=== PATIENT | male | born 1980 | race Caucasian/White ===

== ENCOUNTER 2019-09-09 06:47 | Emergency (ER) | payer OTHER ==
--- NOTE | 2019-09-09 07:07 | ED Physician Documentation ---
PD HPI MHE - Stated complaint Stated Complaint: MHE - Chief complaint Chief Complaint: MHE - History obtained from History obtained from: Patient - History of Present Illness Primary symptom: Manic, Anxiety Timing - onset: How many weeks ago (He states he has been feeling manic episode building over the last several weeks with last sleep anxiety and agitation. Last couple of days he has been feeling pressured and racing thoughts. Last night he had thoughts of taking extra of his sleeping medicine or alcohol or marijuana in order to improve his thought process. 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 However he is feeling that he wants to have better control of his pressured thoughts and anxiety. He is concerned that he is going to either yell at his boss or hit someone if they stress him. He did not have homicidal thoughts per se.) Contributing factors: Work. No: Substance abuse - ETOH, Substance abuse - drugs, Off meds Similar symptoms before: Diagnosis (He does have a history of bipolar disorder treated since 2014. He states he was hospitalized at that point and has been maintained on lithium and trazodone with good control of symptoms until the last month or so. He denies any change in dose of medicines. He does get counseling regularly.) Recently seen: Clinic Review of Systems Constitutional: denies: Fever, Chills Nose: denies: Rhinorrhea / runny nose, Congestion Throat: denies: Sore throat Respiratory: denies: Cough GI: denies: Vomiting, Diarrhea Skin: denies: Rash, Lesions Neurologic: denies: Generalized weakness Psychiatric: reports: Anxiety (racing and pressured thoughts). denies: Hallucinations Endocrine: denies: Weight loss PD PAST MEDICAL HISTORY - Past Medical History Past Medical History: Yes Cardiovascular: None Respiratory: None Neuro: None Endocrine/Autoimmune: None Psych: Bipolar disorder - Past Surgical History Past Surgical History: Yes General: Appendectomy - Present Medications Home Medications: Ambulatory Orders Medication Instructions Recorded Confirmed [place] 100 mg PO BID 09/09/19 09/09/19 traZODone [Desyrel] 150 mg PO HS 09/09/19 09/09/19 - Allergies Allergies/Adverse Reactions: Allergies Allergy/AdvReac Type Severity Reaction Status Date / Time No Known Drug Allergies Allergy Verified 09/09/19 07:00 - Social History Does the pt smoke?: No Smoking Status: Never smoker Does the pt drink ETOH?: No Does the pt have substance abuse?: No - Immunizations Immunizations are current?: Yes - POLST Patient has POLST: No PD ED PE NORMAL - Vitals Vital signs reviewed: Yes - General General: Alert and oriented X 3, Well developed/nourished - HEENT HEENT: Pharynx benign - Neck Neck: Supple, no meningeal sign, No adenopathy - Cardiac Cardiac: RRR, No murmur - Respiratory Respiratory: Clear bilaterally - Abdomen Abdomen: Soft, Non tender - Derm Derm: Normal color, Warm and dry - Neuro Neuro: Alert and oriented X 3, No motor deficit, Normal speech - Psych Psych: Other (pleasant. He does seem somewhat anxious. He has a unpressured speech pattern initially talking with me. He does have everted gaze and does not seem relaxed.) Results - Vitals Vitals: Vital Signs - 24 hr 09/09/19 09/09/19 06:51 10:28 Temperature 36.7 C 36.4 C L Heart Rate 110 H 101 H Respiratory 18 17 Rate Blood Pressure 165/135 H 132/90 H O2 Saturation 96 99 Oxygen O2 Source Room air - Labs Labs: Laboratory Tests 09/09/19 09/09/19 09/09/19 07:00 07:25 07:25 WBC 8.5 RBC 5.09 Hgb 15.9 Hct 47.1 MCV 92.5 MCH 31.2 H MCHC 33.8 RDW 11.8 L Plt Count 280 MPV 8.8 Neut # (Auto) 6.3 Lymph # (Auto) 1.3 L Terrell # (Auto) 0.6 Eos # (Auto) 0.2 Baso # (Auto) 0.1 Absolute Nucleated RBC 0.00 Nucleated RBC % 0.0 Sodium 136 Potassium 4.1 Chloride 101 Carbon Dioxide 25 Anion Gap 10.0 BUN 19 Creatinine 1.0 Estimated GFR (MDRD) 85 L Glucose 98 Calcium 9.7 Magnesium 2.1 Total Bilirubin 0.7 AST 24 ALT 27 Alkaline Phosphatase 57 Total Protein 8.5 H Albumin 5.3 Globulin 3.2 Albumin/Globulin Ratio 1.7 Lipase 25 TSH Urine Color YELLOW Urine Clarity CLEAR Urine pH 7.5 Ur Specific [place] 1.010 Urine Protein NEGATIVE Urine Glucose (UA) NEGATIVE Urine Ketones NEGATIVE Urine Occult Blood NEGATIVE Urine Nitrite NEGATIVE Urine Bilirubin NEGATIVE Urine Urobilinogen 0.2 (NORMAL) Ur Leukocyte Esterase NEGATIVE Ur Microscopic Review NOT INDICATED Urine Culture Comments NOT INDICATED Last Dose Date Last Dose Time Salicylates < 6.0 Urine Opiates Screen NEGATIVE Ur Oxycodone Screen NEGATIVE Urine Methadone Screen NEGATIVE Ur Propoxyphene Screen NEGATIVE Acetaminophen < 10 L Ur Barbiturates Screen NEGATIVE Ur Tricyclics Screen NEGATIVE Ur Phencyclidine Scrn NEGATIVE Ur Amphetamine Screen NEGATIVE U Methamphetamines Scrn NEGATIVE U Benzodiazepines Scrn NEGATIVE [place] Urine Cocaine Screen NEGATIVE U Cannabinoids Screen NEGATIVE Ethyl Alcohol < 5.0 09/09/19 09/09/19 07:25 07:49 WBC RBC Hgb Hct MCV MCH MCHC RDW Plt Count MPV Neut # (Auto) Lymph # (Auto) Terrell # (Auto) Eos # (Auto) Baso # (Auto) Absolute Nucleated RBC Nucleated RBC % Sodium Potassium Chloride Carbon Dioxide Anion Gap BUN Creatinine Estimated GFR (MDRD) Glucose Calcium Magnesium Total Bilirubin AST ALT Alkaline Phosphatase Total Protein Albumin Globulin Albumin/Globulin Ratio Lipase TSH 1.45 Urine Color Urine Clarity Urine pH Ur Specific [place] Urine Protein Urine Glucose (UA) Urine Ketones Urine Occult Blood Urine Nitrite Urine Bilirubin Urine Urobilinogen Ur Leukocyte Esterase Ur Microscopic Review Urine Culture Comments Last Dose Date 09/09/19 Last Dose Time 0849 Salicylates Urine Opiates Screen Ur Oxycodone Screen Urine Methadone Screen Ur Propoxyphene Screen Acetaminophen Ur Barbiturates Screen Ur Tricyclics Screen Ur Phencyclidine Scrn Ur Amphetamine Screen U Methamphetamines Scrn U Benzodiazepines Scrn [place] 0.30 Urine Cocaine Screen U Cannabinoids Screen Ethyl Alcohol PD MEDICAL DECISION MAKING - ED course Complexity details: reviewed results, re-evaluated patient, considered differential (Does sound like he is having a building manic episode over the last few weeks by his self description and it has become more symptomatic the last few days. At this point I would add short-term and antipsychotic such as Zyprexa to help with symptoms here. We will have social work talk with him. He may benefit more from hospitalization with medication adding or adjustment versus being managed with added medication and outpatient follow-up with psychological services.), d/w patient, d/w managed services consultant (Social WorkShelly - Who talked with his command and helped arrange a psychological services appointment later this morning. The patient is comfortable with leaving here and following up with psychological services. He states he feels more calm and better thought process after the medications here this morning. I talked with the patient and told him rather defer any prescriptions to his primary care but wrote as a suggestion to increase his lithium dosing to get in the therapeutic range and perhaps increase his trazodone or add a low-dose of olanzapine.) Departure - Departure Disposition: 01 Home, Self Care Clinical Impression: Bipolar disorder Qualifiers: Active/Remission status: currently active Current bipolar episode type: hypomanic Qualified Code(s): F31.0 - Bipolar disorder, current episode hypomanic Condition: Stable Record reviewed to determine appropriate education?: Yes Comments: Your lithium level was slightly below the therapeutic range at 0.3 with therapeutic range being 0.6-1. Your provider might consider increasing your daily dose slightly to adjust that. Also consideration would be increasing your trazodone dose at night or potentially adding in short-term olanzapine 5 mg daily to help with some of the symptoms until it phase is down. Stay well-hydrated. Go to your senior chief and the psychological services today directly from here. I printed out copies of your lab test to bring with you along with this note for the above suggestions. That medication regimen will be of course up to them and you. Discharge Date/Time: 09/09/19 10:37
[2019-09-09 07:29] LABS: MUDS CUTOFF CONCENTRATIONS CUTOFF CONC BELOW:
[2019-09-09 07:32] LABS: BILIRUBIN,URINE NEGATIVE (NEGATIVE); GLUCOSE, URINE (UA) NEGATIVE (NEGATIVE); KETONES,URINE (UA) NEGATIVE (NEGATIVE); LEUKOCYTE ESTERASE, URINE NEGATIVE (NEGATIVE); NITRITE,URINE NEGATIVE (NEGATIVE); OCCULT BLOOD,URINE NEGATIVE (NEGATIVE); PH,URINE 7.5 PH (5.0-7.5); PROTEIN,URINE NEGATIVE (NEGATIVE); UROBILINOGEN,URINE 0.2 (NORMAL) E.U./dL (NORMAL)
[2019-09-09 07:34] LABS: BASOPHILS # (AUTO) 0.1 10^3/uL (0.0-0.1); BASOPHILS % (AUTO) 0.9 %; EOSINOPHILS # (AUTO) 0.2 10^3/uL (0.0-0.7); EOSINOPHILS % (AUTO) 2.6 %; HGB - HEMOGLOBIN 15.9 g/dL (14.0-18.0); LYMPHOCYTES # (AUTO) 1.3 10^3/uL (1.5-3.5); LYMPHOCYTES % (AUTO) 14.9 %; MEAN CORPUSCULAR HEMOGLOBIN 31.2 pg (27.0-31.0); MEAN CORPUSCULAR HGB CONC 33.8 g/dL (32.0-36.0); MEAN CORPUSCULAR VOLUME 92.5 fL (80.0-94.0); MEAN PLATELET VOLUME 8.8 fL (7.4-11.4); MONOCYTES # (AUTO) 0.6 10^3/uL (0.0-1.0); MONOCYTES % (AUTO) 6.5 %; NEUTROPHILS # (AUTO) 6.3 10^3/uL (1.5-6.6); NEUTROPHILS % (AUTO) 73.7 %; PLT - PLATELET COUNT 280 10^3/uL (130-450); RED BLOOD COUNT 5.09 10^6/uL (4.70-6.10); RED CELL DISTRIBUTION WIDTH 11.8 % (12.0-15.0); WHITE BLOOD COUNT 8.5 x10^3/uL (4.8-10.8)
[2019-09-09] MEDS ORDERED: OLANZapine ODT 5 MG TABLET TL ONE (07:35)
[2019-09-09 07:37] LABS: CLARITY,URINE CLEAR (CLEAR)
[2019-09-09 07:45] LABS: AMPHETAMINE SCREEN,URINE NEGATIVE (NEGATIVE); BENZODIAZEPINES SCREEN, URINE NEGATIVE (NEGATIVE); COCAINE SCREEN URINE NEGATIVE (NEGATIVE); METHADONE SCREEN, URINE NEGATIVE (NEGATIVE); METHAMPHETAMINES SCREEN, URINE NEGATIVE (NEGATIVE); OPIATE SCREEN, URINE NEGATIVE (NEGATIVE); OXYCODONE SCREEN, URINE NEGATIVE (NEGATIVE); PROPOXYPHENE SCREEN, URINE NEGATIVE (NEGATIVE); TRICYCLIC ANTIDEPRESSANT,URINE NEGATIVE (NEGATIVE)
[2019-09-09 08:01] LABS: ACETAMINOPHEN < 10 ug/mL (10-30); ALBUMIN 5.3 g/dL (3.2-5.5); ALBUMIN/GLOBULIN RATIO 1.7 (1.0-2.2); ALKALINE PHOSPHATASE 57 IU/L (42-121); ALT ALANINE AMINOTRANSFERASE 27 IU/L (10-60); AST ASPARTATE AMINOTRANSFERASE 24 IU/L (10-42); BILIRUBIN,TOTAL 0.7 mg/dL (0.2-1.0); BUN - BLOOD UREA NITROGEN 19 mg/dL (6-20); CALCIUM 9.7 mg/dL (8.5-10.3); CARBON DIOXIDE - CO2 25 mmol/L (21-32); CHLORIDE 101 mmol/L (101-111); GFR - MDRD 85 (>89); GLUCOSE 98 mg/dL (70-100); LIPASE 25 U/L (22-51); MAGNESIUM 2.1 mg/dL (1.7-2.8); SALICYLATE < 6.0 mg/dL; SODIUM 136 mmol/L (135-145); TOTAL PROTEIN 8.5 g/dL (6.7-8.2)
[2019-09-09] MEDS ORDERED: NICOTINE 14 MG PATCH TOP STA (08:38)
[2019-09-09] MEDS ORDERED: LITHIUM 150 MG CAPSULE PO STA (08:39)
[2019-09-09 10:29] VITALS: BP 132/90
== END 2019-09-09 10:37 | disposition home or self-care (01) ==
LOC: ED 06:47
DX: F31.0 Bipolar disorder, current episode hypomanic (principal); R79.89 Other specified abnormal findings of blood chemistry
CPT/HCPCS: 36415; 80178; 80320; 80329; 81003; 82652; 83690; 83735; 99283; A9270; 80053; 80306; 80307; 81001; 84443; 85025; 87086

== ENCOUNTER 2020-11-18 09:00 | Outpatient (CLI) | payer OTHER ==
[2020-11-18 09:45] VITALS: BP 112/84
--- NOTE | 2020-11-18 09:45 | SLEEP CARE CONSULTATION ---
Information from patient questionnaire entered by Jocelyn Arriaga. I have reviewed and concur with the information entered by Jocelyn Arriaga. This document represents the service I personally performed and the decisions made by me, Meche Chapman ARNP. History of Present Illness Service Date and Time: 11/18/2020 0900 Reason for Visit: New patient Chief Complaint: reports: Insomnia, Unrefreshed sleep, Snoring, Excessive daytime sleepiness (especially Mon-Fri), Observed pauses in breathing, Fatigue, Frequent awakenings at night Date of Onset: over 10 years Usual bedtime: 9:30-10 pm Time it takes to fall asleep: 30 minutes Snores at night: Yes (I dont know) Observed to quit breathing while asleep: No Number of times waking at night: 3-4 Reasons for waking at night: reports: Other (I dont know, just wake around 2:- 3:30am and then struggle to go back to sleep). denies: Choking, Snoring, Gasping for air (only with a nightmare) Toss, Turn, or Twitch while sleeping: Yes Recalls having dreams: Yes Usually gets out of bed at: 5-7 am Feels refreshed in the morning: No (only refreshed on Sat and Sun) Morning headache: No Sleepy or fatigued during the day: Yes Ever fallen asleep while driving: No Takes day naps: Yes (on Sat and Sun) Dreams during day naps: Yes Prior sleep studies: No Additional HPI information: I had the pleasure of seeing KATE GALVAN today regarding the possibility of him having a sleep disorder. His current complaints are snoring, observed pauses in breathing, unrefreshed sleep and fatigue. He has difficulty getting to sleep and has to take Trazadone to go to sleep. He feels very sleepy during the day mostly on the weekdays but since he catches up on his sleep on the weekends he is better then. He wants to see if he has sleep apnea before he gets out of the service. He denies a family history of sleep apnea. - Parasomnia Symptoms Ever been unable to move upon waking from sleep: No Walks in sleep: No Talks in sleep: No Ever acted out dreams in sleep: No Ever felt weak in the knees when startled or emotional: Yes Bothered by creepy, crawly, restless sensations in legs: Yes (during the day) Problems with memory or concentration: Yes Subjective Initial [place] Sleepiness Scale score: 15 (in 2020) Past Medical History Past Medical History: reports: Anxiety, Depression, Mood disorder (schizophrenia and bipolar type 1), Other (high cholesterol). 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 Patient is Single and lives in [place]. Have you smoked in the past 12 months: Yes (last month he quit after smoking for 4 months) Cigarettes per day (20/pack): 10 Years of smokin (only 4 months) Quit date: 09/2020 Smoking Pack Years: 0.5 Alcohol use: No Caffeine use: Yes Caffeine amount and frequency: 32 oz of coffee daily Family History Family history of sleep disordered breathing: No Allergies and Home Medications Drug allergies reviewed: Yes (NKDA) Home medication list reviewed: Yes Allergy and home medication list: Trazadone Lipitor Vitamin D Vitamin C Review of Systems Weight gain over past 5 years: 8 Cardiovascular: reports: high blood pressure Gastrointestinal: denies: heartburn Neurological: denies: headaches Psychiatric: reports: anxiety, depression, mood disorder, claustrophobia Ear/Nose/Throat: reports: dry mouth/throat (sometimes since started taking cholesterol medication), wisdom teeth removed. denies: tonsillectomy Immunologic: denies: allergies to food or environment Physical Exam Blood Pressure: 112/84 Cuff size: wrist Heart Rate: 69 O2 Saturation: 97 Height: 5 ft 8 in Weight: 210 lb Body Mass Index: 31.9 BMI Classification: Obese Neck circumference: 16.7 (inches) Nostrils: patent to airflow Mouth and throat: narrow oropharynx Soft palate: long Hard palate: normal Uvula visualization: 25% Mallampati Class III Tongue: enlarged in size with teeth zamudio on lateral edges Tonsils: 2+ Neck: normal w/o lymphadenopathy or thyromegaly Heart: regular rate and rhythm Lungs: clear bilaterally Impression and Plan 1. Suspected Obstructive Sleep Apnea-Hypopnea Syndrome, as suggested by a history of loud and irregular snoring, observed cessation of breath while asleep, frequent awakening during the night, unrefreshed sleep, cognitive impairment, and excessive daytime sleepiness. Narrow oropharynx and obesity are common predisposing factors for obstructive sleep apnea-hypopnea syndrome. I recommend proceeding to polysomnography to confirm the diagnosis and to assess severity. If the patient has significant sleep disordered breathing, a manual CPAP titration study will also be performed to find the optimal treatment pressure. I informed the patient of what the sleep studies involve and after some discussion, obtained agreement to proceed. The pathophysiology of obstructive sleep apnea-hypopnea syndrome was discussed with the patient and health risks of cardiovascular and cerebrovascular disease if not treated. Risks of drowsy driving discussed in detail and patient advised to avoid long distance driving and to black puller at the first sign of drowsiness. Patient agreed to plan. * Schedule polysomnography +- manual CPAP titration study and return in 1-2 weeks after the study to discuss result and initiate therapy. * Avoid long distance driving or driving when feeling sleepy. * Avoid alcohol, sedative and muscle relaxant around bedtime. * Attempt to lose weight. * Review instructions provided by trained office staff on how to prepare for the sleep study. * Return for follow-up after sleep study completed. Counseling Topics: Weight loss health impact Visit Type: In Office Time Spent with Patient (minutes): 31 Provider Statement: I spent 100% of the Face to Face Visit with the patient with greater than 50% spent counseling the patient and coordination of care.
== END 2020-11-18 09:01 | disposition home or self-care (01) ==
LOC: SC 09:00
PROVIDERS: ATTEND Nurse Practitioner Family
DX: R06.83 Snoring (principal); G47.8 Other sleep disorders; R41.89 Other symptoms and signs involving cognitive functions and awareness; G47.10 Hypersomnia, unspecified
CPT/HCPCS: 99203; 99212

== ENCOUNTER 2020-12-23 10:48 | Outpatient (CLI) | payer OTHER | END 2020-12-23 10:49 | disposition home or self-care (01) | LOC: SC 10:48 | PROVIDERS: ATTEND Nurse Practitioner Family | DX: R06.83 Snoring (principal); R06.81 Apnea, not elsewhere classified; G47.10 Hypersomnia, unspecified; G47.8 Other sleep disorders; R41.89 Other symptoms and signs involving cognitive functions and awareness; E66.9 Obesity, unspecified; Z68.31 Body mass index [BMI] 31.0-31.9, adult | CPT/HCPCS: 95806 ==

== ENCOUNTER 2021-01-06 11:07 | Outpatient (CLI) | payer OTHER ==
--- NOTE | 2021-01-06 11:45 | SLEEP CARE CONSULTATION ---
Information from patient questionnaire entered by Jocelyn Arriaga. I have reviewed and concur with the information entered by Jocelyn Arriaga. This document represents the service I personally performed and the decisions made by , Meche Chapman ARNP. History of Present Illness Service Date and Time: 01/06/2021 1107 Initial [place] Sleepiness Scale score: 15 (in 2020) Current [place] Sleepiness Scale score: 12 Additional HPI information: KATE GALVAN returns for follow up and results of the recently performed home sleep study. The patient was informed of the following findings: no significant sleep disordered breathing with an average AHI of 1.2 and flash oxygen saturation of 90%. I explained the pathophysiology behind obstructive sleep apnea. Patient does not have sleep apnea and was advised how weight gain could increase the risk of developing sleep apnea in the future. I strongly encouraged the patient to lose weight. Patient has moderate to loud snoring. Snoring can be reduced by weight loss. Weight loss is best achieved with diet consult. Patient instructed to contact PCP for referral. Snoring can also be treated with an oral appliance from a dentist. Advised to check insurance coverage. In addition, an ENT evaluation can be do to see if other treatment is indicated. Patient counseled not drink alcohol less than 4 hours before bedtime as it can increase snoring and apnea. Patient was cautioned about risks of drowsy driving until sleepiness symptoms resolve. Sleep Study - Results Type of Sleep Study: Home sleep study Prior sleep studies: No Polysomnography/Home Sleep Study results: Physician Impression: The quality of the study is good. The length of the study is adequate (> 240 minutes). Please also see the tabulated and graphic data. 1. No significant sleep disordered breathing, with an AHI of 1.2/hr and flash SaO2 of 90%. During the study, the patient had 3 apneas (3 obstructive, 0 central, 0 mixed) and 4 hypopneas. The longest episode lasted 31.5 seconds. The patient slept adequately in supine position (supine AHI was 0.0 and non-supine, 1.79). Allergies and Home Medications Home medication list reviewed: Yes (no new meds) Review of Systems Review of systems same as previous: Yes (no changes) Physical Exam Heart Rate: 76 O2 Saturation: 98 Height: 5 ft 8 in Weight: 206 lb Body Mass Index: 31.3 BMI Classification: Obese Impression and Plan Snoring but no significant sleep disordered breathing. Patient advised that often weight loss will reduce snoring as well as apnea risk. An oral appliance can also be used for snoring. This would require a dental consultation. Patient cautioned not to use other online appliances as can cause bite issues. A list of accredited dentists in [facility] and one local dentist who makes oral appliances is available in this office. Patient is advised to check if insurance will cover. An ENT consult can also be helpful to determine if any other treatment is an option. * Attempt to lose weight * Avoid alcohol consumption near bedtime * The patient is cautioned about driving until sleepiness is completely resolved. * Return in as needed for follow up. Counseling Topics: Weight loss health impact Visit Type: In Office Time Spent with Patient (minutes): 10 Provider Statement: I spent 100% of the Face to Face Visit with the patient with greater than 50% spent counseling the patient and coordination of care.
== END 2021-01-06 11:08 | disposition home or self-care (01) ==
LOC: SC 11:07
PROVIDERS: ATTEND Nurse Practitioner Family
DX: G47.10 Hypersomnia, unspecified (principal); G47.8 Other sleep disorders; R06.81 Apnea, not elsewhere classified; R06.83 Snoring; R41.89 Other symptoms and signs involving cognitive functions and awareness; E66.9 Obesity, unspecified; Z68.31 Body mass index [BMI] 31.0-31.9, adult
CPT/HCPCS: 99212

== ENCOUNTER 2023-03-28 11:23 | Emergency (ER) | payer OTHER ==
[2023-03-28 11:41] VITALS: BP 143/100
[2023-03-28] MEDS ORDERED: TETANUS/DIPHTHERIA/PERTUSSIS 0.5 ML SYRINGE IM ONE (11:48)
[2023-03-28] MEDS ORDERED: BUFFERED LIDOCAINE 10 ML SYRINGE SUBQ STA (11:48)
--- NOTE | 2023-03-28 11:49 | ED Physician Documentation ---
PD HPI LOWER EXT INJURY - Stated complaint Stated Complaint: LT FOOT INJ - Chief complaint Chief Complaint: Laceration - History obtained from History obtained from: Patient (42-year-old gentleman with unknown tetanus status accidentally hit his left lateral foot with an ax while chopping wood at home just prior to arrival.) PD PAST MEDICAL HISTORY - Past Medical History Cardiovascular: None Respiratory: None Neuro: None Endocrine/Autoimmune: None Psych: Bipolar disorder - Past Surgical History Past Surgical History: Yes General: Appendectomy - Present Medications Home Medications: Ambulatory Orders Medication Instructions Recorded Confirmed [place] [[place] Carbonate] 100 mg PO BID 09/09/19 03/28/23 traZODone [Desyrel] 150 mg PO HS 09/09/19 03/28/23 Atorvastatin Calcium [Lipitor] 80 mg PO 03/28/23 HYDROcod/ACETAM 5/325 [[place] 5/325] 1 - 2 tab PO Q6H PRN #15 tablet 03/28/23 cephALEXin [Keflex] 500 mg PO Q6H #28 cap 03/28/23 - Allergies Allergies/Adverse Reactions: Allergies Allergy/AdvReac Type Severity Reaction Status Date / Time No Known Drug Allergies Allergy Verified 03/28/23 11:39 - Social History Does the pt smoke?: No Smoking Status: Never smoker Does the pt drink ETOH?: No Does the pt have substance abuse?: No - Immunizations Immunizations are current?: Yes - POLST Patient has POLST: No PD ED PE NORMAL - Vitals Vital signs reviewed: Yes - General General: Alert and oriented X 3, No acute distress - Extremities Extremities: Other (3 cm longitudinal laceration over the posteromedial left small toe. Normal neurovascular function at the tip. Tendon strength will be assessed after anesthesia.) - Neuro Neuro: Alert and oriented X 3, Normal speech Results - Vitals Vitals: Vital Signs - 24 hr 03/28/23 11:35 Temperature 36.8 C Heart Rate 91 Respiratory 20 Rate Blood Pressure 143/100 H O2 Saturation 99 Oxygen O2 Source Room air - Rads (name of study) Three-view x-ray of the left foot demonstrates intra-articular fractures of the fifth proximal and middle phalanges Relevant Findings:: Final report received, EMP independent interpretation of te st Procedures - Laceration (location) Left small toe Length in cm: 3 Wound type: Linear Neurovascular status: Sensory intact, Motor intact Anesthesia: Lidocaine 1%, With bicarb Wound preparation: Hibiclens, Irrigated copiously NS Skin layer closure: Nylon, Interrupted, Size #-0 - enter number (4-0), Sutures - enter # (7) Other: Patient tolerated well, No complications, Neurovascular intact, Tetanus booster given PD Medical Decision Making - ED course ED course: 42-year-old gentleman with open fracture of proximal and middle phalanges of left small toe with overlying laceration. It was thoroughly irrigated and scrubbed and then closed with sutures. He is placed in a fracture shoe and counseled on wound care and orthopedic follow-up. He declined crutches. He was given 1 g of Ancef IM here. Departure - Departure Disposition: 01 Home, Self Care Clinical Impression: Laceration Open fracture of phalanx of left fifth toe Qualifiers: Encounter type: initial encounter Qualified Code(s): S92.502B - Displaced unspecified fracture of left lesser toe(s), initial encounter for open fracture Condition: Good Record reviewed to determine appropriate education?: Yes Instructions: ED Fx Toe Open Prescriptions: cephALEXin [Keflex] 500 mg PO Q6H #28 cap HYDROcod/ACETAM 5/325 [[place] 5/325] 1 - 2 tab PO Q6H PRN #15 tablet PRN Reason: Pain Comments: I [facility] [place]. As discussed, elevate it, baby it, do not walk too much and keep the shoe on when you are up and around. You should follow-up with orthopedics within a week to 10 days. Call the number on this form, as discussed you may need a referral from Dr. Cuellar. Sutures will need to come out in about 2 weeks. I am prescribing a short course of narcotic pain medication for you. These are potentially dangerous and addictive medications that should be used carefully. These medications may constipate you. Take an [id number]-[id number] stool softener (docusate) twice daily with plenty of water while taking these medications. If you go 24 hours without a bowel movement, take [id number] miralax, per package instructions. Do not drink or drive while taking these medications. If you received narcotic or sedating medications while in the emergency department, do not drive for 24 hours. Store this medication in a safe, secure place and out of reach of children. It is a violation of federal law to give or sell this medication to another person or to use in a manner other than prescribed. The ED will not refill narcotic prescriptions, including prescriptions lost or stolen. To dispose of unwanted medications: 1. [facility] provides a drop box for medication in pill form only (no liquids) 8:00 am to 4:30 p.m. Saturday-Saturday in the lobby of the [facility], [address] [place] [address]. Empty pills into ziplock bag before disposal. Call [phone] for information. 2.[employer] is a free service available to all [facility] residents. Go to [email or web address] Note that many narcotic pain relievers also contain Tylenol/acetaminophen. Please ensure that your total dose of acetaminophen from all sources does not exceed 3 g (3000 mg) per day. Discharge Date/Time: 03/28/23 13:13
[2023-03-28] MEDS ORDERED: ceFAZolin 1 GM VIAL IM STA (12:04)
[2023-03-28] MEDS ORDERED: ceFAZolin 1 GM in SODIUM CHLORIDE 0.9% MINIBAG 100 ML IV STA (12:11)
--- NOTE | 2023-03-28 12:36 | XRAY Report ---
PROCEDURE: Foot 3 View LT INDICATIONS: Toe laceration TECHNIQUE: 3 views of the foot were acquired. COMPARISON: None. FINDINGS: Bones: Minimally displaced intra-articular fractures of the 5th proximal phalangeal head and middle phalangeal base. Small posterior calcaneal enthesophyte. Soft tissues: No suspicious soft tissue calcifications or masses. Soft tissue edema is seen in the 5th toe. IMPRESSION: Minimally displaced intra-articular fractures of the 5th proximal phalangeal head and the 5th middle phalangeal base. Reviewed by: Mack Gibson MD on 03/28/2023 12:35 PM PDT Approved by: Mack Gibson MD on 03/28/2023 12:35 PM PDT Station ID: [id number]
== END 2023-03-28 13:13 | disposition home or self-care (01) ==
LOC: ED 11:23
DX: S92.512B Displaced fracture of proximal phalanx of left lesser toe(s), initial encounter for open fracture (principal); W27.0XXA Contact with workbench tool, initial encounter; Y93.89 Activity, other specified
CPT/HCPCS: 12002; 90471; 99284